=== PATIENT | male | born 2000 | race Caucasian/White ===

== ENCOUNTER 2020-01-27 12:15 | Emergency (ER) | payer BC ==
[~2020-01-27] VITALS: Ht 182.9 cm; Wt 68.0 kg
[2020-01-27 12:17] VITALS: BP 128/78
[2020-01-27] MEDS ORDERED: acetaminophen 325mg tablet PO ONE (12:40)
--- NOTE | 2020-01-30 10:25 | NUR ---
Called and gave patient COVID results.
== END 2020-01-27 13:07 | disposition home or self-care (01) ==
LOC: ER 12:15
DX: R11.2 Nausea with vomiting, unspecified (principal); Z20.828 Contact with and (suspected) exposure to other viral communicable diseases; B34.9 Viral infection, unspecified; R06.02 Shortness of breath; Z56.0 Unemployment, unspecified
CPT/HCPCS: 36415; 87635; 99283